=== PATIENT | female | born 1950 | race Caucasian/White ===

== ENCOUNTER → 2017-12-17 | Outpatient (CLI) | payer BC | LOC: RAD 08:24 | DX: I63.9 Cerebral infarction, unspecified (principal); C34.90 Malignant neoplasm of unspecified part of unspecified bronchus or lung ==

== ENCOUNTER 2020-06-27 13:14 | Outpatient (RCR) | payer MEDICARE | END 2020-07-17 17:00 | disposition home or self-care (01) | LOC: PT 13:14 | DX: I63.9 Cerebral infarction, unspecified (principal) ==